=== PATIENT | female | born 1935 | race Caucasian/White ===

== ENCOUNTER 2016-10-02 19:18 | Emergency (ER) | payer MEDICARE, OTHER ==
[2016-10-02 20:35] LABS: BASOPHIL 0.5 % (0-2); HCT 30.9 % (37.0-47.0); LYMPHOCYTE 22.8 % (15-48); MCH 28.4 pg (25.0-31.0); MCHC 32.4 g/dL (32.0-36.0); MCV 87.8 fL (78.0-100.0); MONOCYTE 8.8 % (0-12); MPV 9.9 fL (6.0-9.5); NEUTROPHIL 63.9 % (41-80); PLT 226 K/uL (150-400); RBC 3.52 M/uL (4.20-5.40); RDW 14.6 % (11.5-14.0); WBC 6.5 K/uL (4.0-10.5)
[2016-10-02 20:53] LABS: ALBUMIN 3.6 g/dL (3.4-4.8); BILIRUBIN - TOTAL 0.3 mg/dL (0.1-1.0); GLOBULIN (CALCULATION) 2.5 g/dL (2.2-4.2); POTASSIUM 4.3 mmol/L (3.5-5.1); TOTAL PROTEIN 6.1 g/dL (6.4-8.3)
== END 2016-10-02 21:40 | disposition home or self-care (01) ==
LOC: FER 19:18
PROVIDERS: Nurse Practitioner
DX: I10 Essential (primary) hypertension (principal); I48.91 Unspecified atrial fibrillation; Z79.899 Other long term (current) drug therapy; Z79.82 Long term (current) use of aspirin
CPT/HCPCS: 36415; 80053; 85025; 93005